=== PATIENT | female | born 1960 | race Caucasian/White ===

== ENCOUNTER 2016-10-22 11:26 | Emergency (ER) | payer OTHER ==
[~2016-10-22] VITALS: Ht 167.6 cm; Wt 81.6 kg
[~2016-10-22 11:26] MED LIST: ALD25 PO; ASPIR 8181 MG PO; ATORVASTATIN CA10 M1 PO; CLINDAMYCIN HC300 MG PO; COR3 PO; HYDROXYZINE50 M1 PO; L20 PO; LAC PO; LEVAQUIN750 MG PO; METFORMIN HCL1000 MG PO; ZES5 PO; ZOCOR20 MG PO
[2016-10-22 15:16] VITALS: BP 134/88
== END 2016-10-22 15:16 | disposition home or self-care (01) ==
LOC: ED 11:26
DX: N64.4 Mastodynia (principal); R60.9 Edema, unspecified; E11.9 Type 2 diabetes mellitus without complications; J44.9 Chronic obstructive pulmonary disease, unspecified; E78.00 Pure hypercholesterolemia, unspecified; I50.9 Heart failure, unspecified
CPT/HCPCS: 76641

== ENCOUNTER 2016-11-10 05:31 | Emergency (ER) | payer OTHER ==
[2016-11-10 07:25] LABS: BASOPHIL % 0.3 % (0-2); PLATELET COUNT 211 x10^3mcL (130-400)
[2016-11-10 07:27] LABS: RED CELL DISTRIBUTION WIDTH 18.9 % (11.5-14.5)
[2016-11-10 07:29] LABS: CHLORIDE SERUM 103 mmol/L (98-107); POTASSIUM SERUM 4.3 mmol/L (3.5-5.1); SODIUM SERUM 138 mmol/L (136-145)
[2016-11-10 07:30] LABS: CARBON DIOXIDE 30.6 mmol/L (21-32); CREATININE SERUM 0.9 mg/dL (0.6-1.0); GFR1 > 60 mL/min; GLUCOSE SERUM 147 mg/dL (74-106)
[2016-11-10 07:40] LABS: ALKALINE PHOSPHATASE 130 U/L (46-116); ALT/SGPT 16 U/L (14-59); AMYLASE 33 U/L (25-115); AST/SGOT 28 U/L (15-37); BILIRUBIN TOTAL 1.14 mg/dL (0.20-1.00); LIPASE 92 IU/L (73-393); MAGNESIUM 1.4 mg/dL (1.8-2.4); T4(THYROXINE) 6.7 ug/dL (4.7-13.3); TOTAL PROTEIN, SERUM 7.4 g/dL (6.4-8.2)
[2016-11-10 07:41] LABS: ALBUMIN 2.6 g/dL (3.4-5.0); CHOLESTEROL 92 mg/dL (<200); HDL CHOLESTEROL 24 mg/dL (40-60)
[2016-11-10 09:07] LABS: UA SPECIFIC GRAVITY 1.015 (1.005-1.035); microscopic required? YES; urine erythrocyte 2+ (NEGATIVE)
[2016-11-10 09:17] LABS: AMPHETAMINE QUAL UR NONE DETECTED (NEG <=1000)
[2016-11-10 09:36] LABS: CHOLESTEROL/HDL RATIO 3.6; PHOSPHOROUS 3.9 mg/dL (2.5-4.9)
[2016-11-10 09:43] LABS: FREE T4 1.3 ng/dL (0.76-1.46); FREE THYROXINE INDEX 2.3 ug/dL (1.4-4.5); T4(THYROXINE) 6.5 ug/dL (4.7-13.3)
[2016-11-10 10:11] LABS: T3 TOTAL 0.54 ng/mL
[2016-11-10 20:14] VITALS: BP 125/72
== END 2016-11-10 20:13 | disposition short-term general hospital (02) ==
LOC: ED 05:31
PROVIDERS: Emergency Medicine; Family Medicine
DX: I50.43 Acute on chronic combined systolic (congestive) and diastolic (congestive) heart failure (principal); J96.92 Respiratory failure, unspecified with hypercapnia; J96.91 Respiratory failure, unspecified with hypoxia; J44.9 Chronic obstructive pulmonary disease, unspecified; R60.1 Generalized edema; I10 Essential (primary) hypertension; E11.9 Type 2 diabetes mellitus without complications; E78.00 Pure hypercholesterolemia, unspecified; F17.210 Nicotine dependence, cigarettes, uncomplicated; Z59.0 Homelessness; Z71.6 Tobacco abuse counseling
CPT/HCPCS: 36600; 80307; 83880; 84439; 99406; J0696; J1815; J1940; J1956; J3475; Q0092

== ENCOUNTER 2018-08-25 14:30 | Inpatient (IN) | payer OTHER ==
[~2018-08-25] VITALS: Ht 162.6 cm; Wt 67.4 kg
[2018-08-25 16:13] LABS: PLATELET COUNT 572 x10^3mcL (130-400); RED CELL DISTRIBUTION WIDTH 15.3 % (11.5-14.5)
[2018-08-25 16:26] LABS: ALKALINE PHOSPHATASE 133 U/L (46-116); ALT/SGPT 9 U/L (14-59); AST/SGOT 7 U/L (15-37); BILIRUBIN TOTAL 0.3 mg/dL (0.20-1.00); CALCIUM 7.9 mg/dL (8.5-10.1); CARBON DIOXIDE 12.2 mmol/L (21-32); CHLORIDE SERUM 95 mmol/L (98-107); FREE T4 1.19 ng/dL (0.76-1.46); LIPASE 619 IU/L (73-393)
[2018-08-25 16:28] LABS: ALBUMIN 1.8 g/dL (3.4-5.0); GFR1 11 mL/min; TOTAL PROTEIN, SERUM 8.4 g/dL (6.4-8.2)
[2018-08-25 16:30] LABS: GLUCOSE SERUM 576 mg/dL (74-106); POTASSIUM SERUM 6.3 mmol/L (3.5-5.1); SODIUM SERUM 120 mmol/L (136-145)
[2018-08-25 16:31] LABS: CREATININE SERUM 4.5 mg/dL (0.6-1.0)
[2018-08-25 16:45] LABS: BAND NEUTROPHIL 4 % (0-10); METAMYELOCTE 1 % (0-2); MONOCYTE 8 % (0-7); SEGMENTED NEUTROPHILS 82 % (37-75)
[2018-08-25 16:46] LABS: rbc morphology (normal/abnorm) ABNORMAL (NORMAL)
[2018-08-25 16:47] LABS: PLATELET MORPHOLOGY PLATELETS INCREASED
[2018-08-25 16:56] LABS: OSMOLALITY SERUM 315 mOsm/kg (278-298)
[2018-08-25 18:37] VITALS: BP 144/78
[2018-08-25 20:11] VITALS: BP 112/49
[2018-08-25 22:43] LABS: CALCIUM 7.8 mg/dL (8.5-10.1); POTASSIUM SERUM 5.2 mmol/L (3.5-5.1)
[2018-08-25 22:49] LABS: CARBON DIOXIDE 9.7 mmol/L (21-32)
[2018-08-26] VITALS: BP 94/55
[2018-08-26 04:00] VITALS: BP 114/60
[2018-08-26 05:31] LABS: BASOPHIL % 0 % (0-2); PLATELET COUNT 589 x10^3mcL (130-400)
[2018-08-26 05:39] LABS: CALCIUM 7.9 mg/dL (8.5-10.1); CARBON DIOXIDE 12.9 mmol/L (21-32); CREATININE SERUM 3.9 mg/dL (0.6-1.0); POTASSIUM SERUM 5.5 mmol/L (3.5-5.1)
[2018-08-26 07:45] VITALS: BP 95/47
[2018-08-26 08:43] LABS: AMYLASE 83 U/L (25-115); LIPASE 264 IU/L (73-393)
[2018-08-26 09:17] LABS: CALCIUM 7.7 mg/dL (8.5-10.1); CARBON DIOXIDE 13.9 mmol/L (21-32); CREATININE SERUM 3.9 mg/dL (0.6-1.0); POTASSIUM SERUM 5.4 mmol/L (3.5-5.1)
[2018-08-26 11:21] VITALS: BP 94/53
[2018-08-26 11:34] LABS: microscopic required? YES; urine erythrocyte 1+ (NEGATIVE)
[2018-08-26 11:47] LABS: AMPHETAMINE QUAL UR POSITIVE (See below)
[2018-08-26 13:34] LABS: CALCIUM 7.7 mg/dL (8.5-10.1); CARBON DIOXIDE 13.3 mmol/L (21-32); CREATININE SERUM 3.8 mg/dL (0.6-1.0); POTASSIUM SERUM 5.1 mmol/L (3.5-5.1)
[2018-08-26 15:07] VITALS: BP 109/56
[2018-08-26 17:39] LABS: CALCIUM 7.5 mg/dL (8.5-10.1)
[2018-08-27 01:05] LABS: CALCIUM 7.5 mg/dL (8.5-10.1); CARBON DIOXIDE 11.5 mmol/L (21-32); POTASSIUM SERUM 5.1 mmol/L (3.5-5.1)
[2018-08-27 01:08] LABS: CREATININE SERUM 4.3 mg/dL (0.6-1.0)
[2018-08-27 05:48] LABS: RED CELL DISTRIBUTION WIDTH 15.2 % (11.5-14.5)
[2018-08-27 05:51] LABS: PLATELET COUNT 556 x10^3mcL (130-400)
[2018-08-27 05:55] LABS: CARBON DIOXIDE 13.3 mmol/L (21-32); POTASSIUM SERUM 5.2 mmol/L (3.5-5.1)
[2018-08-27 06:00] LABS: CREATININE SERUM 4.3 mg/dL (0.6-1.0)
[2018-08-27 06:03] LABS: BAND NEUTROPHIL 5 % (0-10); METAMYELOCTE 1 % (0-2); MONOCYTE 6 % (0-7); SEGMENTED NEUTROPHILS 83 % (37-75)
[2018-08-27 06:04] LABS: PLATELET MORPHOLOGY PLATELETS INCREASED; rbc morphology (normal/abnorm) ABNORMAL (NORMAL)
[2018-08-27 07:34] VITALS: BP 137/92
[2018-08-27 11:03] LABS: CALCIUM 7.4 mg/dL (8.5-10.1); CARBON DIOXIDE 10.6 mmol/L (21-32); POTASSIUM SERUM 5.2 mmol/L (3.5-5.1)
[2018-08-27 11:04] LABS: CREATININE SERUM 4.3 mg/dL (0.6-1.0)
[2018-08-27 11:50] VITALS: BP 141/59
[2018-08-27 15:49] VITALS: BP 113/66
[2018-08-27 17:02] LABS: CALCIUM 7.7 mg/dL (8.5-10.1); CARBON DIOXIDE 11.2 mmol/L (21-32); POTASSIUM SERUM 4.8 mmol/L (3.5-5.1)
[2018-08-27 17:03] LABS: CREATININE SERUM 4.3 mg/dL (0.6-1.0)
[2018-08-27 19:19] VITALS: BP 129/58
[2018-08-27 22:01] LABS: CALCIUM 7.8 mg/dL (8.5-10.1); CARBON DIOXIDE 11.6 mmol/L (21-32); POTASSIUM SERUM 4.8 mmol/L (3.5-5.1)
[2018-08-27 22:07] LABS: CREATININE SERUM 4.3 mg/dL (0.6-1.0)
[2018-08-27 23:10] VITALS: BP 135/67
[2018-08-28 03:15] VITALS: BP 124/61
[2018-08-28 05:43] LABS: CALCIUM 7.6 mg/dL (8.5-10.1); CARBON DIOXIDE 12.3 mmol/L (21-32); POTASSIUM SERUM 5.2 mmol/L (3.5-5.1)
[2018-08-28 05:47] LABS: CREATININE SERUM 4.2 mg/dL (0.6-1.0)
[2018-08-28 05:52] LABS: RED CELL DISTRIBUTION WIDTH 15.4 % (11.5-14.5)
[2018-08-28 05:54] LABS: PLATELET COUNT 572 x10^3mcL (130-400)
[2018-08-28 06:11] LABS: BAND NEUTROPHIL 5 % (0-10); MONOCYTE 5 % (0-7); SEGMENTED NEUTROPHILS 85 % (37-75); rbc morphology (normal/abnorm) ABNORMAL (NORMAL)
[2018-08-28 06:12] LABS: PLATELET MORPHOLOGY PLATELETS INCREASED
[2018-08-28 07:51] VITALS: Ht 162.6 cm; Wt 67.4 kg
[2018-08-28 08:42] VITALS: BP 137/70
[2018-08-28 11:22] VITALS: BP 123/62
[2018-08-28 16:04] VITALS: BP 86/65
[2018-08-28 19:07] LABS: CALCIUM 7.1 mg/dL (8.5-10.1); CARBON DIOXIDE 13.9 mmol/L (21-32); POTASSIUM SERUM 4.6 mmol/L (3.5-5.1)
[2018-08-28 19:45] VITALS: BP 139/73
[2018-08-28 22:15] LABS: CALCIUM 6.9 mg/dL (8.5-10.1); CARBON DIOXIDE 14.4 mmol/L (21-32); CREATININE SERUM 3.9 mg/dL (0.6-1.0); POTASSIUM SERUM 5.1 mmol/L (3.5-5.1)
[2018-08-28 23:10] VITALS: BP 106/62
[2018-08-29 03:34] VITALS: BP 127/65
[2018-08-29 04:58] LABS: RED CELL DISTRIBUTION WIDTH 14.1 % (11.5-14.5)
[2018-08-29 05:18] LABS: PLATELET COUNT 518 x10^3mcL (130-400)
[2018-08-29 05:41] LABS: MAGNESIUM 1.4 mg/dL (1.8-2.4); PHOSPHOROUS 4.1 mg/dL (2.5-4.9)
[2018-08-29 05:43] LABS: CARBON DIOXIDE 16.2 mmol/L (21-32); CREATININE SERUM 3.8 mg/dL (0.6-1.0); POTASSIUM SERUM 4.9 mmol/L (3.5-5.1)
[2018-08-29 05:55] LABS: BAND NEUTROPHIL 1 % (0-10); MONOCYTE 5 % (0-7); SEGMENTED NEUTROPHILS 84 % (37-75)
[2018-08-29 05:58] LABS: rbc morphology (normal/abnorm) ABNORMAL (NORMAL)
[2018-08-29 06:03] LABS: acanthocyte (spur cell) 1+
[2018-08-29 07:17] VITALS: BP 113/64
[2018-08-29 11:37] VITALS: BP 119/59
[2018-08-29 14:11] LABS: CALCIUM 7.1 mg/dL (8.5-10.1); CARBON DIOXIDE 19.5 mmol/L (21-32); CREATININE SERUM 3.6 mg/dL (0.6-1.0); POTASSIUM SERUM 4.7 mmol/L (3.5-5.1)
[2018-08-29 15:46] VITALS: BP 129/67
[2018-08-29 19:30] VITALS: BP 108/59
[2018-08-29 19:42] LABS: CALCIUM 7.3 mg/dL (8.5-10.1); CARBON DIOXIDE 20.1 mmol/L (21-32); CREATININE SERUM 3.5 mg/dL (0.6-1.0); POTASSIUM SERUM 4.7 mmol/L (3.5-5.1)
[2018-08-29 23:27] VITALS: BP 136/54
[2018-08-30 03:15] VITALS: BP 134/68
[2018-08-30 05:50] LABS: CALCIUM 7.7 mg/dL (8.5-10.1); CREATININE SERUM 3.4 mg/dL (0.6-1.0); MAGNESIUM 1.5 mg/dL (1.8-2.4); PHOSPHOROUS 4.3 mg/dL (2.5-4.9)
[2018-08-30 06:28] LABS: BASOPHIL % 0.6 % (0-2)
[2018-08-30 06:52] LABS: PLATELET COUNT 559 x10^3mcL (130-400)
[2018-08-30 09:00] VITALS: BP 147/82
[2018-08-30 13:00] VITALS: BP 118/58
[2018-08-30 18:01] VITALS: BP 107/57
[2018-08-30 21:48] VITALS: BP 124/60; BP 156/94
[2018-08-31 04:51] VITALS: BP 155/71
[2018-08-31 07:33] LABS: CALCIUM 7.6 mg/dL (8.5-10.1); CARBON DIOXIDE 20.3 mmol/L (21-32); CREATININE SERUM 3.1 mg/dL (0.6-1.0); POTASSIUM SERUM 5.2 mmol/L (3.5-5.1)
[2018-08-31 09:09] LABS: PLATELET COUNT 504 x10^3mcL (130-400)
[2018-08-31 09:25] VITALS: BP 131/83
[2018-08-31 12:53] VITALS: BP 122/56
[2018-08-31 14:13] LABS: ATYPICAL LYMPH 2 %; BAND NEUTROPHIL 0 % (0-10); BASOPHIL 0 % (0-2); MONOCYTE 5 % (0-7); SEGMENTED NEUTROPHILS 88 % (37-75)
[2018-08-31 14:14] LABS: PLATELET MORPHOLOGY PLATELETS INCREASED; rbc morphology (normal/abnorm) ABNORMAL (NORMAL)
[2018-08-31 17:28] VITALS: BP 145/69
[2018-08-31 18:36] VITALS: BP 122/56
[2018-08-31 21:12] VITALS: BP 154/73
[2018-09-01 05:50] VITALS: BP 122/73
[2018-09-01 06:53] LABS: CALCIUM 8.2 mg/dL (8.5-10.1); CARBON DIOXIDE 24.4 mmol/L (21-32); CREATININE SERUM 2.9 mg/dL (0.6-1.0); POTASSIUM SERUM 5.5 mmol/L (3.5-5.1)
[2018-09-01 07:11] LABS: BASOPHIL % 0.4 % (0-2)
[2018-09-01 07:42] LABS: RED CELL DISTRIBUTION WIDTH 15.3 % (11.5-14.5)
[2018-09-01 07:43] LABS: PLATELET COUNT 519 x10^3mcL (130-400)
[2018-09-01 09:38] VITALS: BP 150/74
[2018-09-01 12:23] VITALS: BP 149/69
[2018-09-01 17:53] VITALS: BP 137/65
[2018-09-01 20:24] VITALS: BP 134/69
[2018-09-02 05:48] VITALS: BP 131/70
[2018-09-02 06:41] LABS: CALCIUM 7.8 mg/dL (8.5-10.1); CARBON DIOXIDE 25.4 mmol/L (21-32); CREATININE SERUM 2.8 mg/dL (0.6-1.0)
[2018-09-02 06:45] LABS: BASOPHIL % 0.8 % (0-2)
[2018-09-02 07:16] LABS: PLATELET COUNT 466 x10^3mcL (130-400); RED CELL DISTRIBUTION WIDTH 15.1 % (11.5-14.5)
[2018-09-02 09:51] VITALS: BP 139/61
[2018-09-02 13:19] VITALS: BP 135/65
[2018-09-02 14:18] VITALS: BP 135/65
[2018-09-02] MEDS ORDERED: AMA1 PO (14:23)
== END 2018-09-02 16:05 | disposition home or self-care (01) | DRG 720 ==
LOC: ED 14:30 → IC 17:31 → DU 08-30 05:35
PROVIDERS: Emergency Medicine; Internal Medicine; Internal Medicine Nephrology; ADMIT Internal Medicine
DX: A41.9 Sepsis, unspecified organism (principal); J96.00 Acute respiratory failure, unspecified whether with hypoxia or hypercapnia; N17.0 Acute kidney failure with tubular necrosis; G72.81 Critical illness myopathy; I50.43 Acute on chronic combined systolic (congestive) and diastolic (congestive) heart failure; E11.10 Type 2 diabetes mellitus with ketoacidosis without coma; K85.90 Acute pancreatitis without necrosis or infection, unspecified; T43.621A Poisoning by amphetamines, accidental (unintentional), initial encounter; N17.9 Acute kidney failure, unspecified; E87.1 Hypo-osmolality and hyponatremia; E86.0 Dehydration; J44.9 Chronic obstructive pulmonary disease, unspecified; E11.22 Type 2 diabetes mellitus with diabetic chronic kidney disease; F17.220 Nicotine dependence, chewing tobacco, uncomplicated; N12 Tubulo-interstitial nephritis, not specified as acute or chronic; I42.7 Cardiomyopathy due to drug and external agent; N18.9 Chronic kidney disease, unspecified; E87.5 Hyperkalemia; B96.20 Unspecified Escherichia coli [E. coli] as the cause of diseases classified elsewhere; F15.10 Other stimulant abuse, uncomplicated; I27.20 Pulmonary hypertension, unspecified; I13.0 Hypertensive heart and chronic kidney disease with heart failure and stage 1 through stage 4 chronic kidney disease, or unspecified chronic kidney disease; E11.65 Type 2 diabetes mellitus with hyperglycemia; E78.00 Pure hypercholesterolemia, unspecified; Z83.3 Family history of diabetes mellitus; Z82.49 Family history of ischemic heart disease and other diseases of the circulatory system; Z82.3 Family history of stroke; Z91.14 Patient's other noncompliance with medication regimen; Y92.89 Other specified places as the place of occurrence of the external cause
CPT/HCPCS: 36600; 82962; 83880; 84439; 87804; 97110-GP; 97112-GP; 97116-GP; 97530-GP; 99406; G0480; J1644; J1815; J2185; J2270; J2543; J3370; J3475; J3490; J7030; J7042; J7050; J7620; Q0092

== ENCOUNTER 2019-01-14 19:27 | Emergency (ER) | payer OTHER ==
[~2019-01-14] VITALS: Ht 165.1 cm; Wt 65.8 kg
[~2019-01-14 19:27] MED LIST changes: +AMA1 PO
[2019-01-14 19:32] VITALS: Ht 165.1 cm; Wt 65.8 kg
[2019-01-14 21:19] VITALS: BP 97/62
== END 2019-01-14 21:19 | disposition home or self-care (01) ==
LOC: ED 19:27
DX: J44.1 Chronic obstructive pulmonary disease with (acute) exacerbation (principal); I50.9 Heart failure, unspecified; E78.00 Pure hypercholesterolemia, unspecified
CPT/HCPCS: 82962